=== PATIENT | female | born 1980 | race Two or more races ===

== ENCOUNTER 2018-06-29 12:27 | Emergency (ER) | payer SELFPAY ==
[~2018-06-29] VITALS: Ht 167.6 cm; Wt 86.2 kg
--- NOTE | 2018-06-29 13:00 | NUR ---
I/D done by ER provider. Dressing applied
[2018-06-29] MEDS ORDERED: HYDROCODONE/APAP 5/325MG 1 EACH TABLET PO ONE (13:30)
[2018-06-29] MEDS ORDERED: TDAP [DIPH/PERTUSSIS/TET] 0.5 ML VIAL IM ONE ×2 (13:53→14:00)
[2018-06-29 14:31] VITALS: BP 120/70
--- NOTE | 2018-06-29 14:32 | NUR ---
For discharge [facility] given verbalized understanding home ambulatory in stable condition
== END 2018-06-29 14:32 | disposition home or self-care (01) ==
LOC: ER 12:32
DX: L02.411 Cutaneous abscess of right axilla (principal)
CPT/HCPCS: 90715; A4606; A6253; A6402; A6403; A6407; Z7610

== ENCOUNTER 2019-04-29 22:42 | Emergency (ER) | payer BC ==
[~2019-04-29] VITALS: Ht 167.6 cm; Wt 86.2 kg
--- NOTE | 2019-04-29 22:56 | NUR ---
BIBSELF C/O NECK SPASMS RADIATING DOWN BACK X1 DAY. +HEADACHE + DIZZINESS, VSS TO ER BED 3 AWAITING MED EVAL
[2019-04-29] MEDS ORDERED: HYDROCODONE/APAP 5/325MG 1 EACH TABLET ONE (23:06)
[2019-04-29] MEDS ORDERED: CARISOPRODOL 350 MG TABLET ONE (23:07)
[2019-04-29] MEDS ORDERED: KETOROLAC TROMETHAMINE INJ 60 MG/2 ML VIAL IM ONE ×2 (23:09→23:30)
[2019-04-29 23:20] VITALS: BP 121/79
--- NOTE | 2019-04-29 23:20 | NUR ---
Patient discharged to home in stable condition. Written and verbal after care instructions given. Patient verbalizes understanding of instruction.
[2019-04-29] MEDS ORDERED: CARISOPRODOL 350 MG TABLET PO ONE (23:30)
[2019-04-29] MEDS ORDERED: HYDROCODONE/APAP 5/325MG 1 EACH TABLET PO ONE (23:30)
== END 2019-04-29 23:21 | disposition home or self-care (01) ==
LOC: ER 22:50
DX: M62.830 Muscle spasm of back (principal)
CPT/HCPCS: 96372; 99283; J1885

== ENCOUNTER 2020-04-26 21:51 | Emergency (ER) | payer BC, OTHER ==
[~2020-04-26] VITALS: Ht 167.6 cm; Wt 78.0 kg
--- NOTE | 2020-04-26 22:02 | NUR ---
PT BIBFD AND [employer] C/O BILATERAL FEET LACERATION S/P THROWING GLASS. PT AAOX3, RESPIRATIONS EVEN AND UNLABORED ON RA W/ NAD NOTED. PT CONNECTED TO THE MONITOR AND POX
--- NOTE | 2020-04-26 22:03 | NUR ---
EMT AT BEDSIDE FOR WOUND CARE
[2020-04-26 23:04] VITALS: BP 126/84
--- NOTE | 2020-04-26 23:04 | NUR ---
PT MEDICALLY CLEARED FOR BOOKING. Patient discharged to [facility] in stable condition. Written and verbal after care instructions given. Patient verbalizes understanding of instruction.
== END 2020-04-26 23:15 ==
LOC: ER 21:52
DX: S91.322A Laceration with foreign body, left foot, initial encounter (principal); S91.321A Laceration with foreign body, right foot, initial encounter; S60.221A Contusion of right hand, initial encounter; Z02.89 Encounter for other administrative examinations; W22.8XXA Striking against or struck by other objects, initial encounter; Y93.89 Activity, other specified; Y92.89 Other specified places as the place of occurrence of the external cause; Y99.8 Other external cause status
CPT/HCPCS: 73130; 73620 ×2; 99284; A4649; A6403

== ENCOUNTER 2021-08-13 23:51 | Emergency (ER) | payer SELFPAY ==
[~2021-08-13] VITALS: Ht 167.6 cm; Wt 77.1 kg
--- NOTE | 2021-08-14 00:01 | NUR ---
PT BIBSELF C/O RIGHT KNEE PAIN S/P TRIPPING OVER WHEELBARROW AT NEIGHBORS HOUSE. SKIN INTACT. PT A/OX4. TOLERATING R/A WELL WITH NO SOB.
[2021-08-14 00:02] VITALS: BP 134/79
[2021-08-14] MEDS ORDERED: IBUPROFEN 400 MG TABLET ONE (00:11)
--- NOTE | 2021-08-14 00:13 | NUR ---
PT SEEN BY BAND TEACHER
[2021-08-14] MEDS ORDERED: IBUPROFEN 400 MG TABLET PO ONE (00:30)
--- NOTE | 2021-08-14 00:31 | NUR ---
[facility] AT PT'S BEDSIDE
--- NOTE | 2021-08-14 00:40 | NUR ---
Patient discharged to home in stable condition. Written and verbal after care instructions given. Patient verbalizes understanding of instruction.
== END 2021-08-14 00:40 | disposition home or self-care (01) ==
LOC: ER 23:54
DX: S83.8X1A Sprain of other specified parts of right knee, initial encounter (principal); W22.8XXA Striking against or struck by other objects, initial encounter; Y93.89 Activity, other specified; Y92.89 Other specified places as the place of occurrence of the external cause; Y99.8 Other external cause status
CPT/HCPCS: 73564-TC

== ENCOUNTER 2023-07-07 19:25 | Emergency (ER) | payer BC ==
[~2023-07-07] VITALS: Ht 167.6 cm; Wt 74.8 kg
[2023-07-07] MEDS ORDERED: KETOROLAC TROMETHAMINE 15 MG/ML VIAL IV ONE (20:00)
[2023-07-07] MEDS ORDERED: IV NS 0.9% 500 ML IV ONE (20:00)
[2023-07-07] MEDS ORDERED: KETOROLAC TROMETHAMINE 15 MG/ML VIAL ONE (20:18)
[2023-07-07] MEDS ORDERED: PROM118S5 PO ×2 (21:56→22:05)
[2023-07-07 22:17] VITALS: BP 113/67; TEMP 100.3; O2SAT 98
== END 2023-07-07 22:18 | disposition home or self-care (01) ==
LOC: ER 19:43
DX: J11.1 Influenza due to unidentified influenza virus with other respiratory manifestations (principal); Z20.822 Contact with and (suspected) exposure to COVID-19
CPT/HCPCS: 99284; 96374; 71045; 87426; 87804 ×2; J7040; J1885; C9803